=== PATIENT | female | born 1985 | race Hispanic/Latino ===

== ENCOUNTER 2022-05-07 18:31 | Inpatient (IN) | payer MEDICAID, OTHER, SELFPAY ==
[2022-05-07] MEDS ORDERED: hydrALAZINE 20 MG/ML VIAL SLOW IVP PRN (19:32)
[2022-05-07] MEDS ORDERED: Ondansetron PF 4 MG/2 ML Vial IVP PRN (21:26)
[2022-05-07] MEDS ORDERED: Acetaminophen 500 MG TAB PO PRN (21:26)
[2022-05-07] MEDS ORDERED: Promethazine HCl 25 MG/ML VIAL IM PRN (21:26)
[2022-05-07] MEDS ORDERED: Lactated Ringer's 1,000 ML IV SCH (21:30)
[2022-05-07] MEDS ORDERED: Lidocaine 1% (PF) 30 ML VIAL SC PRN (21:44)
[2022-05-07] MEDS ORDERED: Misoprostol 200 MCG TAB PR PRN (21:44)
[2022-05-07] MEDS ORDERED: Ibuprofen 800 MG TAB PO PRN (21:44)
[2022-05-07] MEDS ORDERED: NS w/ Oxytocin 30 units 500 ML IV SCH (21:45)
[2022-05-07] MEDS ORDERED: Penicillin G Potassium 5 MILL.UNITS in Sodium Chloride 0.9% 100 ML IVPB SCH (21:45)
[2022-05-07 22:27] LABS: Hemoglobin 11.8 g/dL (12.0-15.5); Mean Corpuscular HGB CONC 34.2 g/dL (32.0-36.0); Mean Corpuscular Hemoglobin 29.8 pg (27.0-33.0); Mean Corpuscular Volume 87.1 fl (81.6-98.3); Mean Platelet Volume 11.5 fl (7.4-10.4); Platelet Count 264 10x3/uL (150-450); RBC Distribution Width 13.6 % (11.5-14.5); Red Blood Cell (RBC) Count 3.96 10x6/uL (3.90-5.03)
[2022-05-07 22:32] VITALS: BMI 29.9
[2022-05-07 23:00] LABS: HBSAg Index 0.18 S/CO (0-0.99); Hep B Surf Ag Non-Reactive S/CO (NonReactive)
[2022-05-07 23:04] LABS: Syphilis Antibody Nonreactive (Nonreactive); Syphilis Antibody Index 0.03 S/CO (<1.00 Non-Reactive)
[2022-05-08] MEDS ORDERED: Boostrix 0.5 ML (Tdap) VIAL (>/=7 yrs of age) IM ONE (01:40)
[2022-05-08] MEDS ORDERED: Promethazine HCl 25 MG/ML VIAL IM PRN (01:40)
[2022-05-08] MEDS ORDERED: Misoprostol 200 MCG TAB VAG PRN (01:40)
[2022-05-08] MEDS ORDERED: hydrALAZINE 20 MG/ML VIAL SLOW IVP PRN (01:40)
[2022-05-08] MEDS ORDERED: diphenhydrAMINE 25 MG CAP PO PRN (01:40)
[2022-05-08] MEDS ORDERED: Ondansetron PF 4 MG/2 ML Vial IVP PRN (01:40)
[2022-05-08] MEDS ORDERED: Milk Of Magnesia 30 ML UDCUP PO PRN (01:40)
[2022-05-08] MEDS ORDERED: Bisacodyl 10 MG SUPP PR PRN (01:40)
[2022-05-08] MEDS ORDERED: NS w/ Oxytocin 30 units 500 ML IV SCH (01:45)
[2022-05-08] MEDS ORDERED: Penicillin G 2.5 MILL.units 2.5 MILL.UNITS in Premix Bag 1 BAG IVPB SCH (02:00)
[2022-05-08] MEDS: Ferrous Sulfate 325 MG TAB PO SCH ×2 (08:31→19:04)
[2022-05-08] MEDS: Prenatal Vitamin 1 TAB PO SCH (09:07)
[2022-05-08] MEDS: Docusate 100 MG CAP PO SCH ×2 (09:07→21:24)
[2022-05-08 09:39] LABS: SARS-CoV-2 NAA Rapid Test Not Detected (NotDetected)
[2022-05-08] MEDS: Ibuprofen 800 MG TAB PO SCH ×3 (13:32→21:24)
[2022-05-08] MEDS: Lactated Ringer's 1,000 ML IV SCH ×2 (19:49→19:50)
[2022-05-09] MEDS: Lactated Ringer's 1,000 ML IV SCH ×4 (01:17→21:37)
[2022-05-09] MEDS: Ibuprofen 800 MG TAB PO SCH ×3 (05:29→21:37)
[2022-05-09] MEDS: Ferrous Sulfate 325 MG TAB PO SCH ×2 (09:20→14:50)
[2022-05-09] MEDS: Docusate 100 MG CAP PO SCH ×2 (09:21→21:36)
[2022-05-09] MEDS: Prenatal Vitamin 1 TAB PO SCH (09:21)
[2022-05-10] MEDS: Lactated Ringer's 1,000 ML IV SCH (05:31)
[2022-05-10] MEDS: Ibuprofen 800 MG TAB PO SCH (05:34)
[2022-05-10 08:14] VITALS: BP 110/61; TEMP 98.7
[2022-05-10] MEDS: Prenatal Vitamin 1 TAB PO SCH (08:55)
[2022-05-10] MEDS: Ferrous Sulfate 325 MG TAB PO SCH (08:55)
[2022-05-10] MEDS: Docusate 100 MG CAP PO SCH (08:55)
== END 2022-05-10 12:25 | disposition home or self-care (01) | DRG 807 ==
LOC: CSHLD/OP 18:31 → CSHLD 23:31 → CSHPP 05-08 08:15
PROVIDERS: ADMIT Family Medicine; ATTEND Family Medicine
PROC: 10E0XZZ Delivery of Products of Conception, External Approach (ICD-10-PCS; principal; 2022-05-08)
DX: O99.824 Streptococcus B carrier state complicating childbirth (principal); Z37.0 Single live birth; Z3A.38 38 weeks gestation of pregnancy; Z20.822 Contact with and (suspected) exposure to COVID-19
CPT/HCPCS: 85027; 86780; 86850; 86900; 86901; 87340; 99285; J0595; J2540; J3490; U0002